=== PATIENT | female | born 1980 | race Caucasian/White ===

== ENCOUNTER 2022-05-10 17:13 | Outpatient (CLI) | payer OTHER, SELFPAY ==
--- NOTE | ~2022-05-10 | XR_ITS ---
EXAMINATION: XR chest 2V 05/10/2022 17:27 INDICATION: Chronic cough PROCEDURE: 2 view chest COMPARISON: No prior studies for comparison. FINDINGS: The lungs are clear. The cardiomediastinal silhouette is within normal limits. There are no pleural effusions. There is no pneumothorax suspected. IMPRESSION: 1: NO ACUTE CARDIOPULMONARY DISEASE. Reviewed, dictated and finalized at location B.
== END 2022-05-10 17:14 | disposition home or self-care (01) ==
PROVIDERS: PCP Internal Medicine; Visit Provider Internal Medicine
DX: R05.3 Chronic cough (principal)
CPT/HCPCS: 71046

== ENCOUNTER 2022-05-16 14:21 | Outpatient (CLI) | payer OTHER, SELFPAY ==
--- NOTE | ~2022-05-16 | XR_ITS ---
EXAM: XR thoracic spine 3V DATE: 05/16/2022 14:41 HISTORY: DORSALGIA, NO INJURY . COMPARISON: None available. FINDINGS: Vertebral body alignment intact. Vertebral body heights preserved. No disc space narrowing . No traumatic malalignment or fracture. Visualized lung parenchyma is clear. IMPRESSION: Normal thoracic spine radiograph findings. Reviewed, dictated and finalized at location K.
--- NOTE | ~2022-05-16 | XR_ITS ---
EXAM: XR lumbar spine 2-3V DATE: 05/16/2022 14:41 HISTORY: DORSALGIA, NO INJURY . COMPARISON: 12/05/2009. FINDINGS: 5 nonrib-bearing lumbar-type vertebral bodies. Pedicles intact. Normal vertebral body alig nment. Vertebral body heights preserved. Disc spaces maintained. Minimal marginal osteophytosis at L4 -5 and L5-S1. Mild disc space narrowing at L4-5 and L5-S1. Minimal lower lumbar facet sclerosis. No f racture or dislocation. IMPRESSION: Mild lower lumbar degenerative disc disease and facet arthropathy. Reviewed, dictated and finalized at location K.
== END 2022-05-16 14:22 | disposition home or self-care (01) ==
LOC: ANHIMG 14:24
PROVIDERS: PCP Internal Medicine; Visit Provider Internal Medicine
DX: M51.36 Other intervertebral disc degeneration, lumbar region (principal)
CPT/HCPCS: 72072; 72100

== ENCOUNTER 2022-06-28 06:57 | Outpatient (RCR) | payer OTHER, SELFPAY ==
--- NOTE | 2022-07-19 14:30 | PCPTNOTE ---
Patient did not show up for scheduled appointment this date.
== END 2022-09-11 14:02 | disposition home or self-care (01) ==
LOC: ANHPT 06:57
PROVIDERS: PCP Internal Medicine; Visit Provider Internal Medicine
DX: M54.9 Dorsalgia, unspecified (principal)
CPT/HCPCS: 99199

== ENCOUNTER 2023-02-27 17:18 | Outpatient (CLI) | payer OTHER, SELFPAY ==
--- NOTE | ~2023-02-27 | XR_ITS ---
EXAM: XR_[id number]_CR DATE: 02/27/2023 17:35 HISTORY: LEFT KNEE PAIN . COMPARISON: None available. FINDINGS: Normal mineralization. No fracture or dislocation. No lytic or blastic lesion. Mild medial joint space narrowing. Mild patellofemoral osteophytosis. Trace joint fluid. Patellar enthesopathy. No erosion or periosteal change. Soft tissues within normal limits. IMPRESSION: Mild degenerative changes in the left knee. Reviewed, dictated and finalized at location K.
== END 2023-02-27 17:19 | disposition home or self-care (01) ==
LOC: ANHIMG 17:19
PROVIDERS: PCP Internal Medicine; Visit Provider Internal Medicine
DX: M17.12 Unilateral primary osteoarthritis, left knee (principal)
CPT/HCPCS: 73560

== ENCOUNTER 2023-03-29 00:09 | Emergency (ER) | payer OTHER, SELFPAY ==
--- NOTE | ~2023-03-29 | CT_ITS ---
EXAMINATION: CT pelvis w con DATE: 03/29/2023 02:09 INDICATION: Abscess/induration right inner thigh and gluteal fold. TECHNIQUE: Computed tomography (CT) of the pelvis was performed with 100 mL Omnipaque 350 intravenous contrast. Automated exposure control and iterative reconstruction technique were employed. The dose- length product was 1245.79 mGy-cm. COMPARISON: None FINDINGS: There are no dilated loops of bowel. The appendix is normal. There are no pathologically en larged lymph nodes. There is no ascites. There is an umbilical hernia containing fat. There is skin t hickening and subcutaneous fat stranding in right superior medial thigh, consistent with cellulitis. There is mild lumbar spondylosis. IMPRESSION: 1. Cellulitis in right superior medial thigh. No abscess. Reviewed, dictated and finalized at location A.
[2023-03-29 00:12] VITALS: BP 141/71; PULSE 85; RESP 14; TEMP 36.6; O2SAT 99
--- NOTE | 2023-03-29 00:58 | ED.SKABFB ---
HPI - Skin/Abscess/Foreign Bdy General Chief complaint: Skin/Abscess/Foreign Body <NELSON Torrez Last Filed: 03/29/23 03:37> Stated complaint: boil on inner thigh <NELSON Torrez Last Filed: 03/29/23 03:37> Time Seen by Provider: 03/29/23 00:29 <NELSON Torrez Last Filed: 03/29/23 03:37> Source: patient <NELSON Torrez Last Filed: 03/29/23 03:37> Mode of arrival: ambulatory <NELSON Torrez Last Filed: 03/29/23 03:37> Limitations: no limitations <NELSON Torrez Last Filed: 03/29/23 03:37> History of Present Illness HPI narrative: Patient is a 42-year-old female who presents to the ED with report of an abscess to her right inner thigh. Patient reports she first noticed the abscess yesterday. It has since increased in size and pain. She denies having any drainage from the abscess. Denies any fevers. Denies any nausea, vomiting, abdominal pain. She is not diabetic. <NELSON Torrez Last Filed: 03/29/23 03:37> Related Data Allergies/Adverse reactions: Allergies Allergy/AdvReac Type Severity Reaction Status Date / Time moxifloxacin Allergy Mild RASH Verified 03/29/23 00:10 KETOROLAC TROMETHAMINE Allergy Mild Other Uncoded 03/29/23 00:10 PAPER TAPE Allergy Unknown Other Uncoded 03/29/23 00:10 <NELSON Torrez Last Filed: 03/29/23 03:37> Review of Systems Review of Systems: CONSTITUTIONAL: Denies fever, chills, or sweats. GASTROINTESTINAL: Denies abdominal pain, nausea, vomiting. SKIN: See HPI. MUSCULOSKELETAL: Denies back pain, joint pain, or myalgia. <NELSON Torrez Last Filed: 03/29/23 03:37> All systems reviewed & are unremarkable except as noted in HPI and below <Jimena Fernández PA-C - Last Filed: 03/29/23 03:37> Exam Narrative: GENERAL: Well appearing, morbidly obese with BMI of 46.1, non-toxic, in no acute distress. HEAD: Normocephalic, atraumatic. NECK: Supple. No adenopathy, no masses. RESPIRATORY: Airway patent, respirations nonlabored. Clear to auscultation bilaterally, no rales, rhonchi, wheezing. CARDIOVASCULAR: Regular rate and rhythm without murmurs, rubs, or gallops. Peripheral pulses 2+ and equal bilaterally. MUSCULOSKELETAL: Moves all extremities. Strength/ROM intact without gross deformities. SKIN: Warm, dry, normal color. No rashes. Large area of induration, tenderness to palpation along R medial/posterior proximal thigh/ in region of gluteal fold. Dimpling appearance of skin. No palpable fluctuance. No drainage. NEURO: A&O X3. Speech clear. Cranial nerves II-XII grossly intact. Steady gait. No ataxic movements. PSYCHIATRIC: Appropriate mood and affect. Normal interaction. <Jimena Fernández PA-C - Last Filed: 03/29/23 03:37> Course APPLICATIONS PROCESSOR/PA Physician Supervision This visit was performed by both the physician and an APC. I performed all aspects of the MDM as documented <Ketan Delgado MD - Last Filed: 03/29/23 06:12> Vital Signs Vital signs: Vital Signs Temperature 36.6 C 03/29/23 00:12 Pulse Rate 85 03/29/23 00:12 Respiratory Rate 14 03/29/23 00:12 Blood Pressure 141/71 H 03/29/23 00:12 Pulse Oximetry 99 03/29/23 00:12 Oxygen Delivery Room Air 03/29/23 00:12 Temperature 36.6 C 03/29/23 00:12 Pulse Rate 85 03/29/23 00:12 Respiratory Rate 14 03/29/23 00:12 Blood Pressure 141/71 H 03/29/23 00:12 Pulse Oximetry 99 03/29/23 00:12 Oxygen Delivery Room Air 03/29/23 00:12 <Jimena Fernández PA-C - Last Filed: 03/29/23 03:37> Vital Signs Temperature 36.6 C 03/29/23 00:12 Pulse Rate 85 03/29/23 00:12 Respiratory Rate 14 03/29/23 00:12 Blood Pressure 141/71 H 03/29/23 00:12 Pulse Oximetry 99 03/29/23 00:12 Oxygen Delivery Room Air 03/29/23 00:12 Temperature 36.6 C 03/29/23 00:12 Pulse Rate 85 03/29/23 00:12 Resp
[2023-03-29 01:29] LABS: Basophils Percent Auto 0.4 % (0.2-1.2); Eosinophils Absolute Auto 0.1 K/mm3 (0-0.3); Eosinophils Percent Auto 1.5 % (0-4.4); Hematocrit 35.2 % (37.0-47.0); Immature Granulocyte Absolute 0.02 K/mm3 (0.00-0.031); Immature Granulocyte Percent A 0.3 % (0-0.5); Lymphocytes Percent Auto 33.5 % (18.3-44.2); Mean Corpuscular HGB Conc 34.1 g/dl (32-36); Mean Corpuscular Hemoglobin 30.8 pg (26-34); Mean Corpuscular Volume 90.5 fl (80-100); Mean Platelet Volume 8.6 fl (7.4-10.4); Monocytes Absolute Auto 0.5 K/mm3 (0.1-0.6); Monocytes Percent Auto 6.1 % (2.6-8.5); Neutrophils Absolute Auto 4.5 K/mm3 (1.3-6.7); Neutrophils Percent Auto 58.2 % (45.5-73.1); Platelet Count Result 321 k/mm3 (150-375); Red Blood Count 3.89 M/mm3 (4.2-5.4); White Blood Count 7.8 K/mm3 (4.5-10.0)
[2023-03-29 01:44] LABS: Hemoglobin A1C 5.8 % (<5.7)
[2023-03-29 01:52] LABS: Alanine Aminotransferase 29 U/L (6-35); Albumin Level 4.1 g/dL (3.5-5.1); Alkaline Phosphatase 149 U/L (38-126); Anion Gap 9 mmol/L (8-16); Aspartate Amino Transferase 32 U/L (14-36); Bilirubin,Total 0.2 mg/dL (0.2-1.3); Blood Urea Nitrogen 8 mg/dL (7-17); Calcium 8.8 mg/dL (8.4-10.2); Carbon Dioxide 27 mmol/L (22-30); Chloride 97 mmol/L (98-107); Estimated CRCL calculation 113 ml/min; Estimated Glomerular Filt Rate > 60; Glucose 115 mg/dL (65-110); Lactic Acid Reflex 1.8 mmol/L (0.7-2.0); Potassium 3.3 mmol/L (3.4-5.0); Sodium 133 mmol/L (137-145)
[2023-03-29] MEDS: ACETAMINOPHEN 500 MG TABLET 1000 MG PO (03:00)
[2023-03-29 06:35] VITALS: BP 113/79; PULSE 80; RESP 15; O2SAT 96
== END 2023-03-29 06:37 | disposition home or self-care (01) ==
PROVIDERS: Physician Assistant; Emergency Provider Emergency Medicine; PCP Internal Medicine
DX: L03.115 Cellulitis of right lower limb (principal)
CPT/HCPCS: 36415; 72193; 80053; 83036; 83605; 85025; 99284; A9270; Q9967

== ENCOUNTER 2023-04-16 13:31 | Emergency (ER) | payer OTHER, SELFPAY ==
[2023-04-16] VITALS (16 sets, daily range): BP systolic 97–129; BP diastolic 55–78; PULSE 69–96; RESP 11–25; TEMP 36.4; O2SAT 95–100
--- NOTE | ~2023-04-16 | XR_ITS ---
Portable chest x-ray Comparison: 05/10/2022 Clinical History: Cough Findings: Lungs are clear, without focal consolidation or pleural effusion. Cardiomediastinal silho uette is stable. Bones and soft tissues are unremarkable. Impression: Normal chest. Reviewed, dictated and finalized at [facility]. Impression: Normal chest.
[2023-04-16] MEDS: ALBUTEROL SULFATE NEB 2.5 MG/3 ML INH 10 MG INHALATION (15:42)
[2023-04-16] MEDS: IPRATROPIUM BR 0.02% INH SOLN 0.5 MG/2.5 ML VIAL 1 MG INHALATION (15:42)
--- NOTE | 2023-04-16 16:25 | ED.GENADULT ---
HPI - General Adult General Chief complaint: Upper Respiratory Infection Stated complaint: cough Time Seen by Provider: 04/16/23 14:40 History of Present Illness HPI narrative: Patient is a 42-year-old female who presents ER with cough and wheezing. 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 She was not wearing a mask. The next day she began having some cough. She is developed worsening cough and wheezing since then. No fevers or chills or sweats. No chest pain or chest pressure. No known sick contacts. No history of lung disease. Related Data Allergies Allergy/AdvReac Type Severity Reaction Status Date / Time moxifloxacin Allergy Mild RASH Verified 04/16/23 14:47 KETOROLAC TROMETHAMINE Allergy Mild Other Uncoded 04/16/23 14:47 PAPER TAPE Allergy Unknown Other Uncoded 04/16/23 14:47 Review of Systems Constitutional: Constitutional: Denies chills, Denies fatigue and Denies fever(s) ENT: Denies nasal congestion and Denies sore throat Cardiovascular: Cardiovascular: Denies chest pain, Denies rapid heart rate and Denies radiating jaw, neck or arm pain Respiratory: Respiratory: Reports cough, Reports dyspnea and Reports wheezing Gastrointestinal: Gastrointestinal: Denies abdominal pain, Denies nausea and Denies vomiting PMFSH Past Medical History Medical History (Updated 04/16/23 @ 18:22 by Cody Arauz MD) Anxiety Depression Surgical History Surgical History (Updated 04/16/23 @ 18:22 by Cody Arauz MD) History of hemorrhoidectomy History of hysterectomy History of tonsillectomy Exam Narrative: GENERAL: Well-appearing, well-nourished, and in no acute distress. HEAD: Normocephalic, atraumatic. ENT: Mucous membranes moist. CHEST: Coarse wheezing bilaterally.. No respiratory distress. Speaks in full sentences. HEART: Regular rate and rhythm. Normal peripheral pulses. EXTREMITIES: Normal range of motion. No edema. SKIN: Warm, dry, no rash. NEURO: Alert and oriented x3. PSYCH: Normal mood and affect. Course Course Emergency Course: Lung sounds markedly improved after hour-long nebulizer treatment. Discussed felt that she likely has bronchitis, would recommend inhaler and steroids for home. No evidence of pneumonia. Vital Signs Vital signs: Vital Signs Temperature 97.6 F 04/16/23 13:49 Pulse Rate 96 04/16/23 13:49 Respiratory Rate 16 04/16/23 13:49 Blood Pressure 129/78 04/16/23 13:49 Pulse Oximetry 97 04/16/23 13:49 Oxygen Delivery Room Air 04/16/23 13:49 Temperature 97.6 F 04/16/23 13:49 Pulse Rate 93 04/16/23 17:09 Respiratory Rate 20 04/16/23 17:09 Blood Pressure 107/60 04/16/23 17:09 Pulse Oximetry 100 04/16/23 17:09 Oxygen Delivery Room Air 04/16/23 14:44 Medical Decision Making Vital Signs Vital Signs: Vital Signs Temperature 97.6 F 04/16/23 13:49 Pulse Rate 96 04/16/23 13:49 Respiratory Rate 16 04/16/23 13:49 Blood Pressure 129/78 04/16/23 13:49 Pulse Oximetry 97 04/16/23 13:49 Oxygen Delivery Room Air 04/16/23 13:49 Temperature 97.6 F 04/16/23 13:49 Pulse Rate 93 04/16/23 17:09 Respiratory Rate 20 04/16/23 17:09 Blood Pressure 107/60 04/16/23 17:09 Pulse Oximetry 100 04/16/23 17:09 Oxygen Delivery Room Air 04/16/23 14:44 Imaging Data Radiologist's impression: ITS Impressions Chest X-Ray 04/16/23 16:01 Impression: Normal chest. Discharge Plan Discharge Clinical Impression: Bronchitis Patient Disposition: Home, Self-Care Condition: Stable Instructions: Acute Bronchitis (ED) Additional Instructions: Return the ER if you have worsening shortness of breath, you cannot keep down food or water, you lose consciousness, you have additional concerns. Prescriptions: New prednisone 50 mg tablet 50 mg PO DAILY Qty: 7 0RF albuterol sulfat
== END 2023-04-16 17:10 | disposition home or self-care (01) ==
PROVIDERS: Emergency Provider Emergency Medicine; PCP Internal Medicine
DX: J40 Bronchitis, not specified as acute or chronic (principal); F41.9 Anxiety disorder, unspecified; F32.A Depression, unspecified
CPT/HCPCS: 71045; 99283